=== PATIENT | female | born 1985 | race African-American/Black ===

== ENCOUNTER 2023-02-04 23:51 | Emergency (ER) | payer MEDICAID ==
[~2023-02-04] VITALS: Ht 162.6 cm; Wt 56.0 kg
[2023-02-04 23:51] VITALS: BP 118/77
[2023-02-05 01:03] LABS: Urine Bacteria MOD /hpf (None Seen); Urine Blood Negative /uL (Negative); Urine Specific Gravity 1.014 (1.001-1.035); Urine WBC 16 /hpf (0 - 5)
[2023-02-05] MEDS ORDERED: HYDROcodone-ACET 5/325MG TAB PO ONE (01:30)
[2023-02-05] MEDS ORDERED: cefTRIAXone SOD 1,000 MG VL IM ONE (01:30)
[2023-02-05] MEDS ORDERED: KETOROLAC TROMETH 60MG/2ML VIAL IM ONE (01:30)
[2023-02-05] MEDS ORDERED: CEPH500C PO (02:15)
[2023-02-05] MEDS ORDERED: CYCL-839 PO (02:15)
[2023-02-05] MEDS ORDERED: PHEN-922 PO (02:15)
[2023-02-05] MEDS ORDERED: IBU600T PO (02:15)
== END 2023-02-05 03:46 | disposition home or self-care (01) ==
LOC: ER 23:51
DX: N39.0 Urinary tract infection, site not specified (principal); G89.29 Other chronic pain; M54.59 Other low back pain
CPT/HCPCS: 81001; 81025; 96372; 99284; J0696; J1885

== ENCOUNTER 2023-11-21 04:59 | Emergency (ER) | payer MEDICAID ==
[~2023-11-21] VITALS: Ht 162.6 cm; Wt 55.0 kg
[~2023-11-21 04:59] MED LIST: CEPH500C PO; CYCL-839 PO; IBU600T PO; PHEN-922 PO
[2023-11-21 05:25] VITALS: BP 125/87; PULSE 16; RESP 20; O2SAT 99
== END 2023-11-21 08:02 | disposition left against medical advice (07) ==
LOC: ER 04:59
DX: M54.50 Low back pain, unspecified (principal); Z53.21 Procedure and treatment not carried out due to patient leaving prior to being seen by health care provider

== ENCOUNTER 2024-05-09 22:10 | Emergency (ER) | payer MEDICAID ==
[~2024-05-09] VITALS: Ht 162.6 cm; Wt 63.1 kg
[2024-05-09 23:17] LABS: Urine Bacteria None Seen /hpf (None Seen)
[2024-05-09 23:29] LABS: Urine Blood Negative /uL (Negative); Urine Clarity Turbid (Clear); Urine Color Yellow (Yellow); Urine Mucus FEW (None Seen); Urine Protein, UAD TRACE (Negative); Urine Specific Gravity 1.028 (1.001-1.035); Urine Urobilinogen 2 mg/dL (Negative); Urine WBC 387 /hpf (0 - 5)
[2024-05-10] MEDS: DexAMETHasone SOD PHOS 10MG/1ML VIAL INJ IM ONE (00:16)
[2024-05-10] MEDS: PHENAZOPYRIDINE HCL 100 MG TAB PO ONE (00:16)
[2024-05-10 01:10] LABS: Rapid Strep A Screen-Throat Negative
[2024-05-10] MEDS ORDERED: ACET500T58 PO (01:34)
[2024-05-10] MEDS ORDERED: BACDST PO (01:34)
[2024-05-10] MEDS ORDERED: PHEN-1044 PO (01:34)
[2024-05-10 02:45] VITALS: BP 131/70; PULSE 69; RESP 17; TEMP 98.5; O2SAT 100
[2024-05-10] MEDS: SULFAMETHOX W/TRIMETH(800/160MG) DS TAB PO ONE (02:48)
[2024-05-10] MEDS: PENICILLIN G BENZ 1,200,000 UNITS/2 ML SYRG IM ONE (02:48)
== END 2024-05-10 03:02 | disposition home or self-care (01) ==
LOC: ER 22:10
DX: N39.0 Urinary tract infection, site not specified (principal); J02.0 Streptococcal pharyngitis
CPT/HCPCS: 81001; 87070; 87880; 96372; 99284; J0561; J1100